=== PATIENT | female | born 1960 | race Caucasian/White ===

== ENCOUNTER 2016-11-19 19:23 | Observation (INO) | payer OTHER ==
[~2016-11-19] VITALS: Ht 162.6 cm; Wt 127.0 kg
--- NOTE | ~2016-11-19 | HP ---
Unit #: [id number] #: [id number] Patient: TRENT FARFAN [id number] [facility] [address] [facility]. [place], [place] [address] [id number] I MR#: [id number] NAME: TRENT FARFAN. ROOM: 338 Age: 56 Sex: F Admission Date: 11/19/2016 : 1960 Attending Physician: Michelle Rangel M.D. Primary Care Physician: No Primary Care Physician HISTORY AND PHYSICAL REASON FOR ADMISSION Chest pain. HISTORY OF PRESENT ILLNESS The patient is a 56-year-old white female who follows with Dr. Daigle in the office for a history of nonobstructive coronary artery disease, hypertension, hyperlipidemia, diabetes, obstructive sleep apnea, remote tobacco abuse (quit 30 years ago). The patient presented to the [facility] ED on 11/19/16 at 7:30 p.m. with complaints of chest pain and fatigue. The patient states that she has been increasingly fatigued for the last 2-3 days where she states that she does rest at night; however, throughout the day she finds that anytime she sits down and is not doing anything she falls asleep. The patient, then, yesterday around noon began to have squeezing chest discomfort to the left chest that radiated to the arm. She had a few of these episodes throughout the day and eventually her grandson convinced her to come to the hospital for further evaluation. The patient states that the episodes lasted only a couple of minutes when they occurred and were not related to exertion. The patient reports shortness of breath, sweating, dizziness and palpitations and also shortness of breath with lying flat, as well as bilateral lower extremity edema. She denies any nausea, syncope or recent febrile illness. The patient had a cardiac cath in February [address] Brasher that showed an EF of 65% to 70%. Left main was normal. LAD 20% ostial stenosis. Very small second diagonal with 30% to 40% ostial stenosis. Left circumflex was normal. RCA was normal. The patient had an echo in September 2016 that showed EF 65%, mild mitral regurgitation, mild tricuspid regurgitation and mild pulmonic regurgitation, although this study was very technically limited. The patient has not followed up with Dr. Daigle in the office since 03/15/2015. EKG showed sinus tachycardia with some T wave abnormalities in the lateral leads. At the time of the interview the patient states that she is not currently having any chest discomfort. In regard to her sleep apnea, the patient states that she was originally diagnosed with it 2 years ago; however, she was not recommended at that time to be on a CPAP machine. She had a reevaluation or a second step in the evaluation on October 17, and at that time she was recommended to wear a CPAP and is waiting for that to be set up still to this day. The patient states that she walks maybe a half a block and then has to Unit #: [id number] #: [id number] Patient: TRENT FARFAN stop because she is short of breath and also with pain in her feet due to neuropathy. If she goes to the grocery store, she does ride on a cart, because she is unable to walk very far due to the pain in her feet. PAST MEDICAL HISTORY 1. Hypertension. 2. Hyperlipidemia. 3. Diabetes. 4. Nonobstructive coronary artery disease. 5. Echo October 02, 2016 showed EF 65%, mild mitral regurgitation, mild tricuspid regurgitation and mild pulmonic regurgitation. 6. Cardiac catheterization February 2012 showed an EF of 65% to 70%. Left main was normal. LAD 20% ostial stenosis. Very small second diagonal vessel with 30% to 40% at the ostium. Left circumflex was normal, and RCA was normal. 7. Patient reported to have an IA in the past reported to her by an EKG abnormality. SURGICAL HISTORY 1. Back surgery. 2. Hysterectomy. 3. Hernia repair. 4. Colon resection. SOCIAL HISTORY Patient lives at home with her . She is not very physically active due to shortness of breath and neuropathy. Again, she states that she might walk half a block and has to stop due to shortness of breath and her neuropathy. If she goes to the grocery store, she does ride around in a motorized cart. She also has a smoking history where she smoked, at most, 2 cigarettes per day but quit 30 years ago. She also denies any alcohol abuse or any other illicit drug abuse. FAMILY HISTORY Dad had an IA at age 65. Her brother had bypass surgery x2 separate surgeries at age 40 at the earliest. Sister had bypass surgery in her 60s. ALLERGIES 1. Sertraline. 2. Atorvastatin. HOME MEDICATIONS 1. Colace 100 mg p.o. daily. 2. Coreg 12.5 mg p.o. b.i.d. 3. Omeprazole 20 mg p.o. b.i.d. 4. Lisinopril 10 mg p.o. daily. 5. Aspirin 81 mg p.o. daily. 6. Celexa 40 mg p.o. daily. 7. Chlorthalidone 25 mg p.o. daily. 8. Glipizide 10 mg p.o. daily. 9. Metformin 500 mg p.o. b.i.d. REVIEW OF SYSTEMS A 10-point review of systems negative except for what was listed in the HPI. PHYSICAL EXAMINATION GENERAL: This is a 56-year-old white female who is obese, in no apparent Unit #: [id number] #: [id number] Patient: TRENT FARFAN. VITAL SIGNS: Temp 97.6, pulse 77, respirations 16 and blood pressure 94/64. HEENT: Pupils are equal, round and reactive. Oral mucosa is moist. NECK: No JVD. No thyromegaly. No lymphadenopathy. No carotid bruits. HEART: S1, S2. No S3, S4. No clicks. No rubs. No murmurs. RESPIRATORY: Lungs are clear. ABDOMEN: Soft. Bowel sounds positive. Nontender, nondistended. EXTREMITIES: Trace bilateral lower extremity swelling. NEUROLOGIC: No neuro deficits noted. DIAGNOSTIC STUDIES LABORATORY STUDIES: Troponin less than 0.05, then less than 0.05, then less than 0.03. D-dimer 471. BNP 15. Lipid profile - Cholesterol 185, triglycerides 226, LDL 112, HDL 28. Sodium 134, potassium 4, chloride 100, CO2 24, glucose 207, BUN 7, creatinine 1, AST 31, ALT 17, alkaline phosphatase 88. White count 10.3, hemoglobin 13.8, hematocrit 42.5, platelets 221. IMAGING: Chest x-ray shows no acute findings. CT of the head shows no acute intracranial abnormality. CARDIOVASCULAR: EKG showed sinus tachycardia with some T wave abnormalities in the lateral leads. IMPRESSION 1. Atypical chest pain symptoms. 2. D-dimer was normal. 3. Nonobstructive coronary artery disease per cath February 2012. 4. EF 65% per echo September of 2016. 5. Mild valvular disease. 6. Hypertension. 7. Hyperlipidemia. 8. Diabetes. 9. Obstructive sleep apnea. Thus far has been not treated. 10. Remote tobacco abuse. 11. Positive family history. PLAN Will plan to schedule for a Lexiscan stress test later today. Will also plan for an outpatient 24-hour Holter monitor as the patient describes some palpitation feelings. Will discharge later today if the stress test is normal. Will discontinue nitro paste at this time due to the patient being pain free, as well as blood pressure being mildly low. Further recommendations pending the stress test results. If the stress test is normal, the patient will be discharged later today. The patient can then follow up with Dr. Daigle in the office. The plan of care has been discussed with the patient and is agreeable to proceed. Dictated by Yamileth Mcbride APRN for Molly Poole TD: 11/20/2016 14:56 Unit #: [id number] #: [id number] Patient: TRENT FARFAN JOB #: [id number] HISTORY AND PHYSICAL Page 1 of 1 X X HISTORY AND PHYSICAL
--- NOTE | ~2016-11-19 | HP ---
Unit #: [id number] #: [id number] Patient: TRENT FARFAN [id number] [facility] [address] [facility]. [place], [place] [address] [id number] I MR#: [id number] NAME: TRENT FARFAN. ROOM: 338 Age: 56 Sex: F Admission Date: 11/19/2016 : 1960 Attending Physician: Michelle Rangel M.D. HISTORY AND PHYSICAL REASON FOR ADMISSION Chest pain. HISTORY OF PRESENT ILLNESS The patient is a 56-year-old white female who follows with Dr. Daigle in the office for a history of nonobstructive coronary artery disease, hypertension, hyperlipidemia, diabetes, obstructive sleep apnea, remote tobacco abuse (quit 30 years ago). The patient presented to the [facility] ED on 11/19/16 at 7:30 p.m. with complaints of chest pain and fatigue. The patient states that she has been increasingly fatigued for the last 2-3 days where she states that she does rest at night; however, throughout the day she finds that anytime she sits down and is not doing anything she falls asleep. The patient, then, yesterday around noon began to have squeezing chest discomfort to the left chest that radiated to the arm. She had a few of these episodes throughout the day and eventually her grandson convinced her to come to the hospital for further evaluation. The patient states that the episodes lasted only a couple of minutes when they occurred and were not related to exertion. The patient reports shortness of breath, sweating, dizziness and palpitations and also shortness of breath with lying flat, as well as bilateral lower extremity edema. She denies any nausea, syncope or recent febrile illness. The patient had a cardiac cath in February [address] Brasher that showed an EF of 65% to 70%. Left main was normal. LAD 20% ostial stenosis. Very small second diagonal with 30% to 40% ostial stenosis. Left circumflex was normal. RCA was normal. The patient had an echo in September 2016 that showed EF 65%, mild mitral regurgitation, mild tricuspid regurgitation and mild pulmonic regurgitation, although this study was very technically limited. The patient has not followed up with Dr. Daigle in the office since 03/15/2015. EKG showed sinus tachycardia with some T wave abnormalities in the lateral leads. At the time of the interview the patient states that she is not currently having any chest discomfort. In regard to her sleep apnea, the patient states that she was originally diagnosed with it 2 years ago; however, she was not recommended at that time to be on a CPAP machine. She had a reevaluation or a second step in the evaluation on October 17, and at that time she was recommended to wear a CPAP and is waiting for that to be set up still to this day. The patient states that she walks maybe a half a block and then has to stop because she is short of breath and also with pain in her feet due to Unit #: [id number] #: [id number] Patient: TRENT FARFAN neuropathy. If she goes to the grocery store, she does ride on a cart, because she is unable to walk very far due to the pain in her feet. PAST MEDICAL HISTORY 1. Hypertension. 2. Hyperlipidemia. 3. Diabetes. 4. Nonobstructive coronary artery disease. 5. Echo October 02, 2016 showed EF 65%, mild mitral regurgitation, mild tricuspid regurgitation and mild pulmonic regurgitation. 6. Cardiac catheterization February 2012 showed an EF of 65% to 70%. Left main was normal. LAD 20% ostial stenosis. Very small second diagonal vessel with 30% to 40% at the ostium. Left circumflex was normal, and RCA was normal. 7. Patient reported to have an UT in the past reported to her by an EKG abnormality. SURGICAL HISTORY 1. Back surgery. 2. Hysterectomy. 3. Hernia repair. 4. Colon resection. SOCIAL HISTORY Patient lives at home with her . She is not very physically active due to shortness of breath and neuropathy. Again, she states that she might walk half a block and has to stop due to shortness of breath and her neuropathy. If she goes to the grocery store, she does ride around in a motorized cart. She also has a smoking history where she smoked, at most, 2 cigarettes per day but quit 30 years ago. She also denies any alcohol abuse or any other illicit drug abuse. FAMILY HISTORY Dad had an UT at age 65. Her brother had bypass surgery x2 separate surgeries at age 40 at the earliest. Sister had bypass surgery in her 60s. ALLERGIES 1. Sertraline. 2. Atorvastatin. HOME MEDICATIONS 1. Colace 100 mg p.o. daily. 2. Coreg 12.5 mg p.o. b.i.d. 3. Omeprazole 20 mg p.o. b.i.d. 4. Lisinopril 10 mg p.o. daily. 5. Aspirin 81 mg p.o. daily. 6. Celexa 40 mg p.o. daily. 7. Chlorthalidone 25 mg p.o. daily. 8. Glipizide 10 mg p.o. daily. 9. Metformin 500 mg p.o. b.i.d. REVIEW OF SYSTEMS A 10-point review of systems negative except for what was listed in the HPI. PHYSICAL EXAMINATION GENERAL: This is a 56-year-old white female who is obese, in no apparent distress. Unit #: [id number] #: [id number] Patient: TRENT FARFAN VITAL SIGNS: Temp 97.6, pulse 77, respirations 16 and blood pressure 94/64. HEENT: Pupils are equal, round and reactive. Oral mucosa is moist. NECK: No JVD. No thyromegaly. No lymphadenopathy. No carotid bruits. HEART: S1, S2. No S3, S4. No clicks. No rubs. No murmurs. RESPIRATORY: Lungs are clear. ABDOMEN: Soft. Bowel sounds positive. Nontender, nondistended. EXTREMITIES: Trace bilateral lower extremity swelling. NEUROLOGIC: No neuro deficits noted. DIAGNOSTIC STUDIES LABORATORY STUDIES: Troponin less than 0.05, then less than 0.05, then less than 0.03. D-dimer 471. BNP 15. Lipid profile - Cholesterol 185, triglycerides 226, LDL 112, HDL 28. Sodium 134, potassium 4, chloride 100, CO2 24, glucose 207, BUN 7, creatinine 1, AST 31, ALT 17, alkaline phosphatase 88. White count 10.3, hemoglobin 13.8, hematocrit 42.5, platelets 221. IMAGING: Chest x-ray shows no acute findings. CT of the head shows no acute intracranial abnormality. CARDIOVASCULAR: EKG showed sinus tachycardia with some T wave abnormalities in the lateral leads. IMPRESSION 1. Atypical chest pain symptoms. 2. D-dimer was normal. 3. Nonobstructive coronary artery disease per cath February 2012. 4. EF 65% per echo September of 2016. 5. Mild valvular disease. 6. Hypertension. 7. Hyperlipidemia. 8. Diabetes. 9. Obstructive sleep apnea. Thus far has been not treated. 10. Remote tobacco abuse. 11. Positive family history. PLAN Will plan to schedule for a Lexiscan stress test later today. Will also plan for an outpatient 24-hour Holter monitor as the patient describes some palpitation feelings. Will discharge later today if the stress test is normal. Will discontinue nitro paste at this time due to the patient being pain free, as well as blood pressure being mildly low. Further recommendations pending the stress test results. If the stress test is normal, the patient will be discharged later today. The patient can then follow up with Dr. Daigle in the office. The plan of care has been discussed with the patient and is agreeable to proceed. Dictated by... Yamileth Mcbride APRN for Molly Poole TD: 11/20/2016 14:56 JOB #: [id number] Unit #: [id number] #: [id number] Patient: TRENT FARFAN ADDENDUM The patient underwent Lexiscan Cardiolite stress test today where she had no chest pain, no distress, and no ST changes on the EKG. Dr. Rangel reviewed the radionuclide images and stated that the test is normal and patient can be discharged home with followup with Dr. Daigle. Patient's followup was set for January 15, 2017, at 3:30 p.m[facility]. Patient was also given a prescription for a Holter monitor and instructed to call the office tomorrow to see if there is a Holter monitor available for pickup. Patient verbalized understanding of the discharge instructions. Patient's discharge medications were unchanged from her admission medications. Dictated by Yamileth Mcbride APRN for Molly Poole TD: 11/20/2016 19:47 JOB #: [id number] CC: Chadnu/invision Please Delete HISTORY AND PHYSICAL Page 1 of 1 X X HISTORY AND PHYSICAL
--- NOTE | ~2016-11-19 | ST ---
Unit #: [id number] #: [id number] Patient: TRENT AFRFAN [id number] [facility]. [place] [address] [facility]. [place], [place] [address] [id number] I MR#: [id number] NAME: TRENT FARFAN. : 1960 SEX: F STUDY DATE/TIME: 11/20/2016 UNIT: C3A PCU ROOM: [facility] STUDY DESCRIPTION: Attending Physician: Michelle Rangel M.D. Primary Care Physician: No Primary Care Physician CARDIOLOGY REPORT FINDINGS Baseline EKG: Normal sinus rhythm with ventricular rate 77 beats per minute, prolonged QT, Q wave in lead III and V1, slow R-wave progression, left atrial abnormality. PROCEDURE Lexiscan is a 4-minute test with Lexiscan being injected within the first minute followed by Cardiolite. EKG during the test shows some nonspecific ST-T abnormalities in lateral leads and T-wave inversion. The patient had no complaints of chest pain, palpitations, or dizziness. Had increased shortness of breath and fatigueness which resolved in recovery phase. Maximum heart rate response was 96 beats per minute with a maximum blood pressure response of 148/74 mmHg. The patient had no complaints of chest pain, palpitations, or dizziness. Had increased shortness of breath and fatigueness which resolved in recovery phase. Cardiolite was injected after Lexiscan within the first minute of the test. Radionuclide tests pending. Please correlate with nuclear images. Dictated by... Charisma Javed A.P.R.N. for Molly Poole/salas TD: 11/20/2016 11:30 JOB #: [id number] CARDIOLOGY REPORT Page 1 of 1 X Charisma Javed APRN CARDIOLOGY REPORT
--- NOTE | ~2016-11-19 | BMI ---
[facility] Nutrition Therapy DATE: 11/20/16 Patient: TRENT FARFAN Physician: ATTPRE Address: [address] [place] [address] Room/Bed: [address] [place] [address], Zip: [place] [address] Admit Date: 11/19/16 Date of : 56 Height: 5 4 Weight: 279 127 HIGH BMI NOTE: DX: 56 y/o female admitted with chest pain ANTHROPOMETRICS: Ht: 64", Wt: 127 kg, BMI: 48 (stage III obese) DIET: Healthy heart INTERVENTION: Restricted diet, meds/fluids per MD RECOMMENDATIONS: No H&P available, no evidence of DM hx. Continue healthy heart diet to promote a gradual weight loss towards a healthy BMI range. Respectfully, Stella Yo RD, LD [employer] [facility] [employer] cc: client file
--- NOTE | ~2016-11-19 | EKG ---
PATIENT: TRENT FARFAN UNIT #: [id number] Ventricular Rate: 102 BPM Atrial Rate: 102 BPM P-R Interval: 170 ms QRS Duration: 82 ms Q-T Interval: 348 ms QTC Calculation(Bezet): 453 ms P [place]: 71 degrees Calculated R [place]: 16 degrees Calculated T [place]: 120 degrees Diagnosis Line: Sinus tachycardia Diagnosis Line: Inferior infarct , age undetermined Diagnosis Line: T wave abnormality, consider lateral ischemia Diagnosis Line: Abnormal ECG Diagnosis Line: No previous ECGs available Diagnosis Line: Confirmed by STUART OLIVER MD ([id number]) on Diagnosis Line: 11/20/2016 3:52:16 PM INTERPRETING MD: BENITO KERR
--- NOTE | ~2016-11-19 | TH ---
Unit #: [id number] #: [id number] Patient: TRENT FARFAN [id number] [address] [address] [id number] I MR#: [id number] NAME: TRENT FARFAN. : 1960 SEX: F STUDY DATE/TIME: UNIT: C3A PCU ROOM: [facility] STUDY DESCRIPTION: Nuclear Study Attending Physician: Michelle Rangel M.D. Primary Care Physician: No Primary Care Physician CARDIOLOGY REPORT EXAM Lexiscan Cardiolite Stress Test - Nuclear Portion PROCEDURE Using technetium 99m labeled Cardiolite, rest and stress SPECT images were obtained. Multiple SPECT images were obtained in various views including horizontal and vertical long axis and short axis views of the left ventricle. Images were obtained by gated SPECT method. The patient was administered 10.3 mCi of Cardiolite at rest. The patient was administered 30.9 mCi of Cardiolite after Lexiscan infusion was completed. On the stress images, there is normal perfusion noted. The rest images show normal perfusion. Comparing rest and stress images, there is no stress-induced ischemia noted. The left ventricular ejection fraction is calculated to be 65%. There is no focal wall motion abnormality seen. CONCLUSION 1. No stress-induced ischemia noted. 2. The left ventricular ejection fraction is calculated to be 65%. 3. There is no focal wall motion abnormality seen. 4. Normal Lexiscan Cardiolite stress test. 5. Technically limited study due to patient's body habitus. Clinical correlation is requested. Dictated by... Molly Poole TD: 11/21/2016 06:04 JOB #: [id number] Unit #: [id number] #: [id number] Patient: TRENT FARFAN CARDIOLOGY REPORT Page 1 of 1 X Michelle Rangel MD <ELECTRONICALLY SIGNED> 11/24/16 1429 CARDIOLOGY REPORT
--- NOTE | ~2016-11-19 | CR72 ---
[facility] A Service of [facility] RADIOLOGY TEXT RESULTS PATIENT: TRENT FARFAN LOCATION: [facility] 338- : 56 UNIT #: [id number] AGE: [address]: Michelle Rangel MD SEX: F ORDER DR: [id number] [facility] [address] [facility]. [place], [place] [address] [id number] I MR#: [id number] Acc #: [id number] NAME: TRENT FARFAN. : 1960 SEX: F STUDY DATE/TIME: 11/19/2016 19:46 UNIT: [address] ROOM: [facility] STUDY DESCRIPTION: CR Chest Single View Portable Attending Physician: Michelle Rangel M.D. Ordering Physician: Ed Doctor [id number] [facility] Primary Care Physician: Primary Care Physician No MEDICAL IMAGING REPORT This report is preliminary unless electronic signature is present EXAM Portable chest, 11/19/2016 HISTORY 56-year-old female with left side chest pain beginning today. COMPARISON None available FINDINGS Frontal chest demonstrates clear lungs. No pleural effusion or pneumothorax. The heart size and mediastinum are normal. Pulmonary vasculature normal. IMPRESSION No acute cardiopulmonary findings. Dictated by... Kyle Taveras M.D. THIS IS AN ELECTRONICALLY VERIFIED REPORT Kyle Taveras M.D. at 11/20/2016 2:18 PM YOSI/maria c TD: 11/20/2016 12:51 JOB #: [id number] MEDICAL IMAGING REPORT Page 1 of 1 COPY
--- NOTE | ~2016-11-19 | CT71 ---
[facility] A Service of [facility] RADIOLOGY TEXT RESULTS PATIENT: TRENT FARFAN LOCATION: [facility] 338-01 : 56 UNIT #: [id number] AGE: [address]: Michelle Rangel MD SEX: F ORDER DR: [id number] [facility] [address] [facility]. [place], [place] [address] [id number] I MR#: [id number] Acc #: [id number] NAME: TRENT FARFAN. : 1960 SEX: F STUDY DATE/TIME: 11/19/2016 21:08 UNIT: [address] ROOM: [facility] STUDY DESCRIPTION: CT Head Wo Contrast Attending Physician: Michelle Rangel M.D. Ordering Physician: Bashir Chan D.O. Primary Care Physician: No Primary Care Physician MEDICAL IMAGING REPORT This report is preliminary unless electronic signature is present EXAM CT head without contrast, 11/19/2016. HISTORY 56-year-old female with dizziness and somnolence for 2 days. Posterior head pain for 2 days. COMPARISON None. TECHNIQUE Routine unenhanced axial images performed through the brain. This CT exam was performed with one or more of the following radiation dose reduction techniques: automatic exposure control, adjustment of mA and/or kV according to patient size, and iterative reconstruction. FINDINGS No hemorrhage, acute infarction, mass lesion, or abnormal extraaxial fluid collection. No midline shift or focal mass effect. Ventricular system normal in size and configuration. No acute bony abnormality. Visualized paranasal sinuses are clear. Minimal partial fluid opacification right-sided mastoid air cells. IMPRESSION 1. No acute intracranial abnormality. 2. Minimal partial fluid opacification right-sided mastoid air cells. Dictated by... Kyle Taveras M.D. THIS IS AN ELECTRONICALLY VERIFIED REPORT Kyle Taveras M.D. at 11/20/2016 2:23 PM J/[facility] A Service of [facility] RADIOLOGY TEXT RESULTS PATIENT: TRENT FARFAN LOCATION: [facility] 338-01 : 56 UNIT #: [id number] AGE: [address]: Michelle Rangel MD SEX: F ORDER DR: TD: 11/20/2016 13:03 JOB #: [id number] MEDICAL IMAGING REPORT Page 1 of 1 COPY
[~2016-11-19 19:23] MED LIST: FLEXERIL PO; GLUCOPHAGE XR500 MG PO; PERCOCET7.5 PO; TOPROL XL PO; ZOCOR PO
[2016-11-19 20:06] LABS: BASOPHIL# 0.1 X10e3 (0-0.3); EOSINOPHIL# 0.3 X10e3 (0-0.7); EOSINOPHIL% 2.9 % (0.0-7.0); HEMATOCRIT 42.5 % (35.0-45.0); HEMOGLOBIN 13.8 gm/dL (12.0-16.0); LYMPHOCYTE# 3.8 X10e3 (1.0-3.5); LYMPHOCYTE% 36.7 % (17.0-45.0); MEAN CELL VOLUME 90.3 FL (83-96); MEAN CORPUSCULAR HEMOGLOBIN 29.3 PG (28-34); MEAN CORPUSCULAR HGB CONC 32.4 g/dL (30-36); MEAN PLATELET VOLUME 9.9 FL (6.5-11.5); MONOCYTE# 0.7 X10e3 (0-1.0); MONOCYTE% 6.4 % (3.0-12.0); NEUTROPHIL# 5.5 X10e3 (1.5-7.1); PLATELET COUNT 221 X10e3 (140-420); RED BLOOD COUNT 4.71 X10e (3.90-5.30); RED CELL DISTRIBUTION WIDTH 14.1 % (11.0-15.5); WHITE BLOOD COUNT 10.3 X10e3 (4.0-10.5)
[2016-11-19 20:08] LABS: DIFF IND NO
[2016-11-19 20:30] LABS: ALBUMIN SERUM 3.5 g/dL (3.5-5.0); BILIRUBIN, DIRECT 0.1 mg/dL (0.0-0.2); BILIRUBIN,INDIRECT 0.3 mg/dL (0.0-0.9); BILIRUBIN,TOTAL 0.4 mg/dL (0.2-2.0); CALCIUM SERUM 8.9 mg/dL (8.4-10.2); GLOM FILT RATE Estimated 62.1 mL/min (>60); PROTEIN TOTAL SERUM 7.7 g/dL (6.0-8.3)
[2016-11-19 21:05] LABS: ARTERIAL BLD GAS O2 SATURATION 69.4 % (90.0-100.0); ARTERIAL BLOOD GAS CARBOXY HB 1.1 %sat (0.0-9.0); ARTERIAL BLOOD GAS HCO3 29.5 mmol/L; ARTERIAL BLOOD GAS MET HB 0.8 %sat (0.0-2.0); ARTERIAL BLOOD GAS PCO2 45.9 mmHg (35.0-45.0); ARTERIAL BLOOD GAS pH 7.416 (7.350-7.450)
[2016-11-19 21:06] LABS: ARTERIAL BLOOD GAS ART SITE RIGHT RADIAL; ARTERIAL BLOOD GAS PO2 36.4 mmHg (80.0-100); ARTERIAL DRAW? NO
[2016-11-19 21:07] LABS: ARTERIAL BLOOD GAS DELIVERY ROOM AIR
[2016-11-19 22:06] LABS: POC - CKMB 2.5 ng/mL (0.0-7.9); POC - TROPONIN <0.05 ng/mL (<=0.05)
[2016-11-19 23:39] LABS: POC - CKMB 3.1 ng/mL (0.0-7.9); POC - TROPONIN <0.05 ng/mL (<=0.05)
[2016-11-20] MEDS ORDERED: DOCUSATE SODIU100 MG PO (00:09)
[2016-11-20] MEDS ORDERED: OMEPRAZOLE20 M1 PO (00:10)
[2016-11-20] MEDS ORDERED: COREG12.5 MG PO (00:10)
[2016-11-20] MEDS ORDERED: LISINOPRIL10 MG PO (00:11)
[2016-11-20] MEDS ORDERED: CHLORTHALIDONE25 MG PO (00:11)
[2016-11-20] MEDS ORDERED: CITALOPRAM HBR40 MG PO (00:11)
[2016-11-20] MEDS ORDERED: ASPIRIN81 MG PO (00:11)
[2016-11-20] MEDS ORDERED: METFORMIN HCL500 M2 PO (00:12)
[2016-11-20] MEDS ORDERED: GLIPIZIDE10 MG PO (00:12)
[2016-11-20 08:07] LABS: CHOLESTEROL 185 mg/dL (0-200); HDL CHOLESTEROL 28 mg/dL (35-95); LDL CHOLESTEROL 112 mg/dL ([, -130]); LDL/HDL RATIO 4 RATIO (0-4); TRIGLYCERIDES 226 mg/dL (10-160)
[2016-11-20 08:56] LABS: %MB 3.4 % (0.0-4.0); MB 4.2 ng/ml
== END 2016-11-20 20:00 | disposition home or self-care (01) ==
LOC: CED 19:23 → C3A PCU 22:30 → CEDOF 22:30 → CED 22:58 → C3A PCU 11-20 00:51 → CEDOF 11-20 00:51 → C3A PCU 11-20 20:00
PROVIDERS: Emergency Medicine; Internal Medicine Cardiovascular Disease
DX: R07.89 Other chest pain (principal); R00.0 Tachycardia, unspecified; I25.10 Atherosclerotic heart disease of native coronary artery without angina pectoris; G47.30 Sleep apnea, unspecified; I10 Essential (primary) hypertension; E78.5 Hyperlipidemia, unspecified; E11.9 Type 2 diabetes mellitus without complications; I08.1 Rheumatic disorders of both mitral and tricuspid valves; Z88.8 Allergy status to other drugs, medicaments and biological substances; Z79.899 Other long term (current) drug therapy; Z87.891 Personal history of nicotine dependence
CPT/HCPCS: 36415; 70450; 71010; 78452; 80048; 80061; 80076; 82550; 82553; 82803; 82947; 83880; 84484; 85025; 85379; 93005; 93017; 96372; 96374; 96376; 99285; A9500; G0378; J1650; J1815; J2270; J2785

== ENCOUNTER → 2016-11-22 | Outpatient (CLI) | payer OTHER ==
[~2016-11-22] MED LIST changes: +ASPIRIN81 MG PO; +CHLORTHALIDONE25 MG PO; +CITALOPRAM HBR40 MG PO; +COREG12.5 MG PO; +DOCUSATE SODIU100 MG PO; +GLIPIZIDE10 MG PO; +LISINOPRIL10 MG PO; +METFORMIN HCL500 M2 PO; +OMEPRAZOLE20 M1 PO
--- NOTE | ~2016-11-22 | HM ---
Unit #: [id number] #: [id number] Patient: TRENT FARFAN [id number] [facility]. [facility] [address], [place] [address] [id number] MR#: [id number] NAME: TRENT FARFAN. : 1960 SEX: F STUDY DATE/TIME: 11/27/2016 UNIT: [facility] ROOM: STUDY DESCRIPTION: Holter report Attending Physician: Yamileth Mcbride Aprn Referring Physician: Yamileth Mcbride Aprn Primary Care Physician: Primary Care Physician No CARDIOLOGY REPORT EXAM Twenty-four hour Holter report. DATE APPLIED 11/22/2016 DATE SCANNED 11/26/[address] George Daigle READ BY [facility] Michelle Patel M.D. REASON FOR THE STUDY Palpitations. . FINDINGS Underlying rhythm is normal sinus rhythm with an average heart rate of 95 beats per minute, minimum heart rate of 70 beats per minute, and a maximum heart rate of 122 beats per minute. The minimum heart rate of 70 beats per minute is noted at 4:32 p.m. The maximum heart rate of 122 beats per minute is noted at 2:01 a.m. The patient had a 0.93 second pause noted at 7:36 a.m. The patient had 12 single premature ventricular complexes noted. The patient had 92 single premature atrial complexes noted. The patient did not record any symptoms. CONCLUSION 1. Underlying rhythm is normal sinus rhythm with an average heart rate of 95 beats per minute, minimum heart rate of 70 beats per minute and a maximum heart rate of 122 beats per minute. 2. No sustained atrial or ventricular arrhythmias noted. 3. No significant pauses noted. 4. Occasional single multifocal premature atrial complexes and premature ventricular complexes noted. 5. The patient did not record any symptoms. Dictated by... Unit #: [id number] #: [id number] Patient: TRENT FARFAN Molly Poole/fabio TD: 11/28/2016 08:24 JOB #: [id number] CARDIOLOGY REPORT Page 1 of 1 X Michelle Rangel MD <ELECTRONICALLY SIGNED> 01/24/17 1524 HOLTER MONITOR REPORT
== END | disposition home or self-care (01) ==
LOC: CECH 13:38
DX: R00.2 Palpitations (principal)
CPT/HCPCS: 93225; 93226